=== PATIENT | male | born 1960 | race Caucasian/White ===

== ENCOUNTER → 2021-04-23 | Day surgery (SDC) | payer OTHER ==
[~2021-04-23] MED LIST: ADULT LOW DOSE81 MG PO; CARAFATE1 GM PO; CREON DR 36,001 EACH PO; DAILY VALUE1 EAC1 PO; IRON 100 PLUS1 EACH PO; KEPPRA 500 MG500 MG PO; LIPITOR80 MG PO; OXYCODONE HCL 55 MG PO; PROTONIX40 M4 PO; TRAZODONE HCL100 MG PO
--- NOTE | ~2021-04-23 | OP ---
[address] [address] OPERATIVE REPORT Name: KRYSTIAN PAINTER Room: [facility]#: [id number] Admission: 04/23/21 Attend Phys: Humza Batista DO Discharge: Date of : 58 Report #: [id number] THIS REPORT FOR: cc: Yashira Pastrana Melanie A. FNP Kramer, Adam P. DO ~ DATE OF SURGERY: 04/23/2021 PREOPERATIVE DIAGNOSIS: Left axillary lymphadenopathy. POSTOPERATIVE DIAGNOSIS: Left axillary lymphadenopathy. SURGEON: Humza Batista DO CO-SURGEON: Miguel Angel Cali DO, PGY5 CAMP HOUSEKEEPER: TRAY Rosas SURGERY PERFORMED: Left axillary deep lymph node biopsy excisional. ANESTHESIA: General. ESTIMATED BLOOD LOSS: 10. SPECIMEN: Left axillary lymph node, which was sent for culture, flow cytometry and permanent specimen. COMPLICATIONS: None. HISTORY OF PRESENT ILLNESS: The patient is a 61-year-old male who presented with left axillary lymphadenopathy. It was requested that we perform excisional biopsy to rule out lymphoma. Risks, benefits and alternatives discussed at length with him and he agreed to proceed with surgery. DESCRIPTION OF PROCEDURE: After consent was obtained, the patient was taken to the operating room and placed in a supine position. SCDs applied to bilateral lower extremities, safety belt placed across the patient's waist. 2 grams Ancef given for surgical prophylaxis. General endotracheal anesthesia was administered without complication. 15-blade scalpel was used to make a transverse incision in the axilla. Electrocautery was used for hemostasis and to dissect down to the level of subcutaneous tissue. Careful blunt dissection with a hemostat was performed to reach the axillary fat pad. Once the axillary fat pad was reached, we were able to identify one large axillary lymph node. The perilymphatic tissue was grasped with Allis grasper and the lymph node was brought into the surgical field. Clips were applied to the perilymphatic tissue to avoid lymphocele formation. Electrocautery was [place] [address] OPERATIVE REPORT Name: KRYSTIAN PAINTER Room: [facility].#: [id number] Admission: 04/23/21 Attend Phys: Humza Batista DO Discharge: Date of : 58 Report #: [id number] node from the surrounding structures. Hemostasis in the axilla was assured with clips and electrocautery. Once hemostasis was completely assured, the lymph node was evaluated. It measured about 2 x 1 cm. Lymph node was dissected. Portion of the lymph node was sent for culture, flow cytometry and permanent specimen. At this point, the subcutaneous tissue was reapproximated with 3-0 Vicryl. Skin was reapproximated with 4-0 Monocryl. All needle, instrument and sponge counts correct x 2 at the end of the case. Surgical glue was placed over the incisions. The patient was awoken from general anesthesia and sent to PACU in stable condition. By: [id number] Batista DO /nt
[2021-04-23 06:45] LABS: HEMATOCRIT 38.1 % (42.0-52.0); HEMOGLOBIN 12.9 gm/dL (14.0-18.0); MCH 31.6 pg (26.0-34.0); MCHC 33.9 g/dL (28.0-37.0); MCV 93.3 fL (80.0-100.0); MPV 7.6 fl. (7.2-11.1); RBC 4.09 mil/uL (4.50-6.00); RDW-CV 13.6 % (10.5-14.5); WBC 10.8 thou/uL (4.0-11.0)
[2021-04-23 06:52] LABS: CALCIUM 9.3 mg/dL (8.5-10.1); CREATININE 1.2 mg/dL (0.6-1.3); POTASSIUM 4.1 mmol/L (3.5-5.1)
--- NOTE | 2021-04-23 12:23 | EKG ---
[place] [address] ELECTROCARDIOGRAM REPORT Name: INOCENCIOKRYSTIAN JAMES Room: [facility]#: [id number] Admission: 04/23/21 Attend Phys: Humza Batista DO Discharge: Date of : 58 Date of Service: 04/23/21701 Report #: [id number] THIS REPORT FOR: //name// [facility] Test Date: 2021-04-23 Test Time: 07:02:06 Pat Name: KRYSTIAN PAINTER Department: Room: Gender: Manager Lpn: : 1960 Requested By: Eula Stock Order Number: [id number] Nasim SHRESTHA: Paxton Ramirez Measurements Intervals [place] Rate: 54 P: 73 DE: 176 QRS: 77 QRSD: 102 T: 59 QT: 426 QTc: 404 Interpretive Statements Sinus rhythm No previous ECG available for comparison Electronically Signed On 04-23-2021 12:22:57 CDT by Paxton Ramirez [email or web address] <ELECTRONICALLY SIGNED> By: Paxton Ramirez MD, [facility] 04/23/21 1222 1 1 Paxton Ramirez MD, [facility] /EPI
--- NOTE | 2021-05-01 10:42 | PATH ---
[address] [address] PATHOLOGY RPT PROCEDURE Name: KRYSTIAN PAINTER Room: [facility].#: [id number] Admission: 04/23/21 Date of : 58 Discharge: Report #: [id number] Path Case #: [id number] [facility] Accession Number: [id number] . 01 Material submitted: . axillary tail of breast - LEFT AXILLARY NODE. Modifiers: left . 01 Clinical history: . LEFT LYMPHADENOPHATY . 02 Diagnosis: "Left axillary lymph node", excisional biopsy: - Lymph node with hyperplasia; no evidence of lymphoma. (See comment) (CLW/db; 04/29/2021) . Special studies report received from [facility], [address] [place] [address], [address], [place], [address], on case [id number], labeled with their number [id number], dated 04/25/2021. . Flow Cytometry: Hematologic Neoplasia Assessment . Clinical History Left axillary lymphadenopathy . Indication For Study Evaluation for lymphadenopathy . Specimen Lymph Node, Left Axillary . Viability 78% (7AAD exclusion) . Interpretation Lymph Node, Left Axillary: - No diagnostic lymphoid immunophenotypic abnormalities detected - Elevated CD4/CD8 ratio (6.9:1) with partial CD10 compatible with reactive Follicular [place] T-cells. . Comments Correlation with available clinical, laboratory, and morphologic data is recommended. . Populations Analyzed Lymphocytes: 72% B-cells: 39.6%, polytypic/polyclonal sIg light chain pattern (K/L= 1.7:1) T-cells: No significant abnormalities of the markers tested. Partial Cd10 on large CD4+ T-cell, compatible [place] [address] PATHOLOGY RPT PROCEDURE Name: KRYSTIAN PAINTER Room: [facility].#: [id number] Admission: 04/23/21 Date of : 58 Discharge: Report #: [id number] Path Case #: [id number] Additional Markers: cCD3+, TCRab+, cTdT-, CD1a-, CD34- CD4:CD8: 6.9 :1 (elevated) NK cells: 2.0% CD45 Negative 27% No significant reactivity with the markers tested Events/Debris: (may represent non-hematolymphoid cells, degenerated cells, debris, unlysed red blood cells, etc.) . Morphologic Evaluation A slide was reviewed for clinical quality analyst purposes only. . Specimen Description Total Cell Yield: 7.92 x 10 and 6 Viability is less than 80%. Flow cytometric data derived from samples with <80% viability need to be interpreted within the context of all clinical and laboratory data available. . Reagent(s) Used CD2, CD3, CD4, CD5, CD7, CD8, CD10, CD11b, CD19, CD20, CD23, CD30, CD38, CD43, CD45, CD56, CD57, FMC-7, HLA-DR, kappa, lambda, CD1a, CD34, CytoCD3, TCRa/b, TdT . at [facility]. Elias Triana MD Pathologist . Intended Use Flow cytometry is optimally used to immunophenotypically characterize abnormal populations when they are detected. Negative flow cytometry results do not exclude lymphoma or neoplasia. Possible false negative flow cytometry results may occur in, but are not limited to, the following: neoplastic cells in Hodgkin lymphoma are not typically adequately represented by routine clinical flow cytometry; neoplastic cells may be lost or inadequately represented due to degeneration, sample processing, sampling artifact, or patchy involvement; plasma cells are typically underrepresented by flow cytometry; immature cells/blasts may be underrepresented due to hemodilution; myeloproliferative disorders and low grade myelodysplasia may not have immunophenotypic abnormalities or increased blasts. Correlation with all available clinical, laboratory, and morphologic data is always necessary to assess for the possibility of false negative flow cytometry results and to establish a diagnosis. Each marker in this analysis was used to assess for potential antigenic abnormalities or to evaluate detected abnormalities. . Any image or images that accompany this report are bilingual call center representative images only and should not be used to render a diagnosis. . Disclaimer(s) This test was developed and [place] [address] PATHOLOGY RPT PROCEDURE Name: INOCENCIOKRYSTIAN JAMES Room: [facility]#: [id number] Admission: 04/23/21 Date of : 58 Discharge: Report #: [id number] Path Case #: [id number] [employer]. It has not been cleared or approved by the Food and Drug Administration. . Performing Labs [facility] [employer] is a business unit of [employer] a wholly-owned subsidiary of [employer] . This test was performed at [facility]. at [address], [place], [address] - Health Outreach Worker: Daniel Thao MD. . For inquiries, the physician may contact Lab: [phone] . A complete copy of the report is on file. . Professional services performed by [facility]. at [address], [place] [address]. Technical services performed by [employer] [facility]. at [address], [place] [address]. . (CLW:pennie 04/26/2021) . [facility] 04/29/2021 1534 Local . 02 Comment: Sections show fragments of lymph node with overall intact lymph node architecture. There is a sinus histiocytosis. Rare germinal centers with tingible body macrophages are noted. No markedly atypical lymphoid cells, including Panfilo-Nan cells, are identified. No granulomas or other infiltrative processes are seen. . Flow cytometric immunophenotypic analysis was performed at [facility]. The interpretation is "no diagnostic lymph node immunophenotypic abnormalities detected, elevated CD4/CD8 ratio (6.9:1) with partial CD10 compatible with reactive follicular helper T-cells." There are 72% lymphocytes. Of the lymphocytes, there are 39.6% polyclonal B-cells (kappa lambda ratio of 1.7). T-cells have a CD4/CD8 ratio of 6.9 and no aberrant T-cell antigen expression. Partial CD10 on large CD4 positive T-cells are compatible with follicular helper T-cells. Please see separate flow cytometry report from [facility] ([id number]). . Overall the diagnosis is lymph node with hyperplasia. There is no morphologic evidence of lymphoma. Clinical and radiographic correlation is recommended. The case is co-reviewed with Dr. Juan Javier who agrees on 04/30/21. (CLW/db; 04/29/2021) . 02 [place] [address] PATHOLOGY RPT PROCEDURE Name: KRYSTIAN PAINTER Room: [facility]#: [id number] Admission: 04/23/21 Date of : 58 Discharge: Report #: [id number] Path Case #: [id number] Electronically signed: . Aparna Lucas MD, Pathologist NPI- [id number] . 01 Gross description: . The specimen is received in formalin designated "Krystian Painter, left axillary node in formalin" and consists of a previously partially sectioned pink-pedro rubbery candidate lymph node (1.6 x 1.0 x 0.8 cm) with a moderate amount of attached fat. The lymph node is serially sectioned to reveal pink-pedro to sandoval rubbery homogenous cut surfaces. Cushion Installer sections to include the entirety of the candidate lymph node are submitted in A1-A3. Also received with this case is a portion of tissue in RPMI media. This portion of the specimen is given to send outs on 04/23/2021 for further testing. (EYAK; 04/23/2021) DKA/DESTINEE 04/23/2021 1716 Local . 02 Pathologist provided ICD-10: R59.0 . 02 CPT . 054530 Specimen Comment: A courtesy copy of this report has been sent to [phone] Specimen Comment: Report sent to Specimen Comment: A duplicate report has been generated due to demographic updates. Performed at: [address] [facility] [address], [place], [place] [id number] MD Bobo Ramos MD Phone: [phone] Performed at: 02 [facility] [address] [id number] MD Aparna Lucas MD Phone: [phone]
== END | disposition home or self-care (01) ==
LOC: M.SUR 05:55
PROVIDERS: Anesthesiology; ATTEND Surgery
DX: R59.0 Localized enlarged lymph nodes (principal); Z98.890 Other specified postprocedural states; Z79.899 Other long term (current) drug therapy; Z20.822 Contact with and (suspected) exposure to COVID-19; Z79.82 Long term (current) use of aspirin